=== PATIENT | female | born 1950 | race Caucasian/White ===

== ENCOUNTER 2016-10-31 05:52 | Day surgery (SDC) | payer MEDICARE ==
[~2016-10-31] VITALS: Ht 175.3 cm; Wt 63.5 kg
[~2016-10-31 05:52] MED LIST: AMOXICILLIN500 MG OR; CLONAZEPAM1 MG PO; FENTANYL25 MCG/HR TD; LIPITOR20 M1 PO; LORTAB 10 PO; LORTAB 5 OR; MOTRIN400 MG/TAB PO; NO HOME MEDS; OXYCODONE30 MG PO; ROXICODONE15 MG PO
[2016-10-31 08:18] VITALS: BP 128/72
== END 2016-10-31 08:40 | disposition home or self-care (01) ==
LOC: ENDO 05:52
PROVIDERS: ATTEND Internal Medicine Gastroenterology
PROC: 0DBK8ZX Excision of Ascending Colon, Via Natural or Artificial Opening Endoscopic, Diagnostic (ICD-10-PCS; principal; 2016-10-31)
PROC: 0DBE8ZX Excision of Large Intestine, Via Natural or Artificial Opening Endoscopic, Diagnostic (ICD-10-PCS; 2016-10-31)
PROC: 0DBL8ZX Excision of Transverse Colon, Via Natural or Artificial Opening Endoscopic, Diagnostic (ICD-10-PCS; 2016-10-31)
PROC: 0DBN8ZX Excision of Sigmoid Colon, Via Natural or Artificial Opening Endoscopic, Diagnostic (ICD-10-PCS; 2016-10-31)
PROC: 0DBP8ZX Excision of Rectum, Via Natural or Artificial Opening Endoscopic, Diagnostic (ICD-10-PCS; 2016-10-31)
DX: R19.7 Diarrhea, unspecified (principal); R10.33 Periumbilical pain; D12.2 Benign neoplasm of ascending colon; D12.3 Benign neoplasm of transverse colon; D12.5 Benign neoplasm of sigmoid colon; D12.8 Benign neoplasm of rectum; K64.4 Residual hemorrhoidal skin tags; K64.8 Other hemorrhoids; K57.30 Diverticulosis of large intestine without perforation or abscess without bleeding; K56.60 Unspecified intestinal obstruction; E78.00 Pure hypercholesterolemia, unspecified

== ENCOUNTER 2017-06-20 17:51 | Emergency (ER) | payer MEDICARE ==
[~2017-06-20] VITALS: Ht 175.3 cm; Wt 63.0 kg
[2017-06-20 20:24] LABS: INFLUENZA A NONE DETECTED (NONE DETECT); INFLUENZA B NONE DETECTED (NONE DETECT)
[2017-06-20] MEDS ORDERED: AMOXICILLIN500 MG PO (22:14)
[2017-06-20] MEDS ORDERED: CODEINE/GUAIFEN1 SOL PO (22:14)
[2017-06-20 22:28] VITALS: BP 142/89
== END 2017-06-20 22:28 | disposition home or self-care (01) ==
LOC: ED 17:51
PROVIDERS: Emergency Medicine
DX: J06.9 Acute upper respiratory infection, unspecified (principal); F17.210 Nicotine dependence, cigarettes, uncomplicated; J40 Bronchitis, not specified as acute or chronic

== ENCOUNTER → 2018-02-25 | Outpatient (REF) | payer MEDICARE ==
[~2018-02-25] MED LIST changes: +AMOXICILLIN500 MG PO; +CODEINE/GUAIFEN1 SOL PO
[2018-02-25 13:56] LABS: C. DIFFICILE TOXIN A&B NEGATIVE (NEGATIVE)
== END | disposition home or self-care (01) ==
LOC: LABSPEC 13:18
PROVIDERS: ATTEND Internal Medicine
DX: R19.7 Diarrhea, unspecified (principal); A04.72 Enterocolitis due to Clostridium difficile, not specified as recurrent

== ENCOUNTER → 2018-02-26 | Outpatient (REF) | payer MEDICARE | END | disposition home or self-care (01) | LOC: MRI 13:28 | PROVIDERS: ATTEND Internal Medicine | DX: R25.1 Tremor, unspecified (principal) ==

== ENCOUNTER → 2018-07-20 | Outpatient (REF) | payer MEDICARE ==
[2018-07-20 09:40] LABS: HEMATOCRIT 43.2 % (37.0-47.0); HEMOGLOBIN 14.3 g/dl (12.0-16.0); MEAN CELL VOLUME 87.3 fL CALC (80.0-100.0); MEAN CORPUSCULAR HGB 28.9 pG CALC (26.0-32.0); MEAN CORPUSCULAR HGB CONC 33.1 g/L CALC (32.0-36.0); RED BLOOD COUNT 4.95 mill/uL (4.20-5.60); RED CELL DISTRI WIDTH 13.8 % (11.5-15.5)
[2018-07-20 10:00] LABS: ALBUMIN 3.9 g/dL (3.2-5.0); ALKALINE PHOSPHATASE 93 u/l (38-126); ANION GAP 13 (6-22 (CALC)); BILIRUBIN, TOTAL 0.5 mg/dL (0.0-1.4); BUN 15 mg/dL (8-23); BUN/CREATININE RATIO 22 (12-20 (CALC)); CALCULATED LDLCHOLESTEROL 167 mg/dL (62-129 (CALC)); CARBON DIOXIDE 30 mmol/l (22-30); CHLORIDE 100 mmol/l (95-108); CHOLESTEROL HDL RATIO 3.8 (<4.4 (CALC)); CREATININE 0.7 mg/dL (0.5-1.0); GFR > 60 ML/MIN (>=60 (CALC)); GFR FOR AFR.AMER. > 60 ML/MIN (>=60 (CALC)); HDL CHOLESTEROL 66 mg/dL (>=40); POTASSIUM 4.4 mmol/l (3.5-5.1); SGOT/AST 22 u/l (9-36); SODIUM 139 mmol/l (137-146); TOTAL PROTEIN 7.1 g/dL (6.3-8.2); TOTAL TRIGLYCERIDES 92 mg/dl (30-149); VLDL CHOLESTROL 18 mg/dl (1-41 (CALC))
[2018-07-20 10:02] LABS: TOTAL CHOLESTEROL 251 mg/dl (0-199)
[2018-07-20 10:28] LABS: TSH, 3RD GENERATION 2.53 uIU/mL (0.47 - 4.68)
== END | disposition home or self-care (01) ==
LOC: LAB 08:51
PROVIDERS: ATTEND Nurse Practitioner
DX: G25.0 Essential tremor (principal); E78.49 Other hyperlipidemia

== ENCOUNTER 2020-06-30 16:35 | Emergency (ER) | payer MEDICARE ==
[~2020-06-30] VITALS: Ht 175.3 cm; Wt 77.3 kg
[2020-06-30 18:36] VITALS: BP 155/87
== END 2020-06-30 18:43 | disposition home or self-care (01) ==
LOC: ED 16:35
DX: M25.572 Pain in left ankle and joints of left foot (principal); F17.200 Nicotine dependence, unspecified, uncomplicated

== ENCOUNTER 2021-01-01 07:10 | Day surgery (SDC) | payer MEDICARE ==
[~2021-01-01 07:10] MED LIST changes: +FLONASE AL50 MCG/ACT IN; +PROTONIX40 M2 PO; +WELLBUTRIN XL300 MG PO
[2021-01-01 09:05] VITALS: BP 124/62
== END 2021-01-01 09:23 | disposition home or self-care (01) ==
LOC: ENDO 07:10 → ORM 08:30 → ENDO 09:23
PROVIDERS: ATTEND Surgery
PROC: 0DJD8ZZ Inspection of Lower Intestinal Tract, Via Natural or Artificial Opening Endoscopic (ICD-10-PCS; principal; 2021-01-01)
DX: Z12.11 Encounter for screening for malignant neoplasm of colon (principal); K57.30 Diverticulosis of large intestine without perforation or abscess without bleeding; Z86.010 Personal history of colon polyps
CPT/HCPCS: G0105

== ENCOUNTER 2021-01-07 22:30 | Emergency (ER) | payer MEDICARE ==
[~2021-01-07] VITALS: Ht 175.3 cm; Wt 77.0 kg
[2021-01-08 00:47] VITALS: BP 164/92
== END 2021-01-08 00:50 | disposition home or self-care (01) ==
LOC: ED 22:30
DX: Z20.822 Contact with and (suspected) exposure to COVID-19 (principal)